=== PATIENT | male | born 1985 | race African-American/Black ===

== ENCOUNTER 2018-12-31 04:27 | Emergency (ER) | payer OTHER ==
[2018-12-31 04:41] VITALS: RESP 18
[2018-12-31 04:57] LABS: Basophils % (A) 0 %; Eosinophils # (A) 0.2 k/uL (0-0.7); Eosinophils % (A) 2 %; HCT 44.1 % (39.0-53.0); Lymphocytes # (A) 1.2 k/uL (1.0-4.8); Lymphocytes % (A) 11 %; MCH 29.3 pg (25.0-35.0); MCV 86.3 fL (80.0-100.0); Monocytes # (A) 0.2 k/uL (0-1.0); Monocytes % (A) 2 %; Neutrophils # (A) 8.6 k/uL (1.3-7.7); Neutrophils % (A) 85 %; Platelet Count 360 k/uL (150-450); RBC 5.11 m/uL (4.30-5.90); RDW 12.9 % (11.5-15.5); WBC 10.1 k/uL (3.8-10.6)
[2018-12-31] MEDS ORDERED: SODIUM CHLORIDE 0.9% 1,000 ML IV ONE ×2 (05:05→06:29)
[2018-12-31 05:09] LABS: ALT 30 U/L (21-72); AST 32 U/L (17-59); African American GFR (CKD) >90 (>60 ml/min/1.73 sqM); Albumin 4.8 g/dL (3.5-5.0); Alkaline Phosphatase 77 U/L (38-126); Amylase 55 U/L (30-110); Anion Gap 12 mmol/L; Blood Urea Nitrogen 12 mg/dL (9-20); Calcium 10.1 mg/dL (8.4-10.2); Carbon Dioxide 22 mmol/L (22-30); Chloride 107 mmol/L (98-107); Glucose 145 mg/dL (74-99); Potassium 3.6 mmol/L (3.5-5.1); Sodium 141 mmol/L (137-145); Total Bilirubin 1.1 mg/dL (0.2-1.3); Total Protein 8.5 g/dL (6.3-8.2)
[2018-12-31] MEDS ORDERED: PROMETHAZINE INJ 25 MG in SODIUM CHLORIDE 0.9% 50 ML IVPB ONE (05:15)
[2018-12-31] MEDS ORDERED: METOCLOPRAMIDE 5 MG/ML 2 ML VIAL IVP STA (05:22)
[2018-12-31 05:31] LABS: Amorphous Sediment,Urine Rare /hpf; Appearance,Urine Cloudy (Clear); Bilirubin,Urine Negative (Negative); Blood,Urine Negative (Negative); Color,Urine Yellow; Glucose,Urine (UA) Negative (Negative); Ketones,Urine 1+ (Negative); Leukocyte Esterase,Urine Negative (Negative); Mucus,Urine Many /hpf; Nitrite,Urine Negative (Negative); PH, Urine 6.5 (5.0-8.0); Protein,Urine 1+ (Negative); RBC,Urine 1 /hpf (0-5); Specific Gravity,Urine 1.031 (1.001-1.035); WBC,Urine 1 /hpf (0-5)
--- NOTE | 2018-12-31 05:39 | CT ---
EXAM: CT Abdomen and Pelvis Without Intravenous Contrast CLINICAL HISTORY: Its. reason CT Reason: periumbilical pain TECHNIQUE: Axial computed tomography images of the abdomen and pelvis without intravenous contrast. CTDI is 11.8 mGy and DLP is 695.9 mGy-cm. This CT exam was performed using one or more of the following dose reduction techniques: automated exposure control, adjustment of the mA and/or kV according to patient size, and/or use of iterative reconstruction technique. COMPARISON: No prior FINDINGS: Lung bases: Unremarkable. No mass. No consolidation. Mediastinum: Small hiatal hernia. ABDOMEN: Liver: Mild diffuse low density in the liver. Mild hepatomegaly. Gallbladder and bile ducts: Unremarkable. No calcified stones. No ductal dilation. Pancreas: Unremarkable. No ductal dilation. Spleen: Unremarkable. No splenomegaly. Adrenals: Unremarkable. No mass. Kidneys and ureters: No renal or ureteral calcification. No hydronephrosis. Stomach and bowel: No bowel obstruction. Mild apparent thickening of the transverse and descending colon likely due to under distention. PELVIS: Appendix: Normal appendix. Bladder: Decompressed bladder. No stones. Reproductive: Unremarkable as visualized. ABDOMEN and PELVIS: Intraperitoneal space: Unremarkable. No free air. No significant fluid collection. Bones/joints: No acute fracture. No dislocation. Soft tissues: Unremarkable. Vasculature: Unremarkable. No abdominal aortic aneurysm. Lymph nodes: Small mesenteric lymph nodes, nonspecific. IMPRESSION: 1. No evidence for appendicitis. 2. Nonspecific bowel gas pattern. Small hiatal hernia. 3. Fatty liver. Mild hepatomegaly. 4. No renal or ureteral calculus
--- NOTE | 2018-12-31 07:06 | ED ---
Nausea/Vomiting/Diarrhea HPI <Sean Victoria - Last Filed: 12/31/18 08:05> - General Source: patient Mode of arrival: wheelchair Limitations: no limitations - History of Present Illness MD complaint: nausea, vomiting -: week(s) Description of Vomiting: food contents Associated Abdominal Pain: Yes Location: diffuse Severity: mild Quality: cramping Consistency: intermittent Improves with: none Worsens with: none <Chase Raines - Last Filed: 01/12/19 08:52> - General Chief complaint: Nausea/Vomiting/Diarrhea Stated complaint: Abd Pain Time Seen by Provider: 12/31/18 04:41 - History of Present Illness Initial comments: This patient is 33-year-old man who presents to be evaluated for intermittent abdominal symptoms have been going on for number weeks. He states that he has intermittent abdominal cramping and vomiting. The abdominal cramping is mild, diffuse, he has not noted worsening or relieving factors. With the vomiting, he has not seen coffee-ground material or blood. No blood or dark tarry stools. No change in urination. (Chase Raines) - Related Data Previous Rx's Medication Instructions Recorded Famotidine [Pepcid] 20 mg PO BID #14 tablet 12/31/18 Ondansetron Odt [Zofran ODT] 4 mg PO Q8HR PRN #10 tab 12/31/18 Allergies Allergy/AdvReac Type Severity Reaction Status Date / Time No Known Allergies Allergy Verified 12/31/18 04:41 Review of Systems ROS Other: All systems not noted in ROS Statement are negative. <Sean Victoria - Last Filed: 12/31/18 08:05> ROS Other: All systems not noted in ROS Statement are negative. Constitutional: Denies: fever, chills Respiratory: Denies: cough, dyspnea Cardiovascular: Denies: chest pain, palpitations, edema Gastrointestinal: Reports: as per HPI, abdominal pain, nausea, vomiting. Denies: diarrhea, constipation, hematemesis, melena, hematochezia Genitourinary: Denies: dysuria, hematuria, testicular pain Musculoskeletal: Denies: back pain Skin: Denies: rash <Chase Raines - Last Filed: 01/12/19 08:52> ROS Statement: Those systems with pertinent positive or pertinent negative responses have been documented in the HPI. Past Medical History Past Medical History: No Reported History History of Any Multi-Drug Resistant Organisms: None Reported Past Surgical History: No Surgical Hx Reported Past Psychological History: No Psychological Hx Reported Smoking Status: Never smoker Past Alcohol Use History: None Reported Past Drug Use History: Marijuana <Chase Raines - Last Filed: 01/12/19 08:52> General Exam Limitations: no limitations General appearance: alert, in no apparent distress Head exam: Present: atraumatic, normocephalic Eye exam: Present: normal appearance. Absent: scleral icterus, conjunctival injection Respiratory exam: Present: normal lung sounds bilaterally. Absent: respiratory distress, wheezes, rales, rhonchi, stridor Cardiovascular Exam: Present: regular rate, normal rhythm, normal heart sounds. Absent: systolic murmur, diastolic murmur, rubs, gallop GI/Abdominal exam: Present: soft. Absent: distended, tenderness, guarding, rebound, rigid, mass Extremities exam: Present: normal inspection, normal capillary refill. Absent: pedal edema, calf tenderness Back exam: Present: normal inspection. Absent: CVA tenderness (R), CVA tenderness (L) Neurological exam: Present: alert Skin exam: Present: warm, dry, intact, normal color. Absent: rash <Chase Raines - Last Filed: 01/12/19 08:52> Course Vital Signs 12/31/18 12/31/18 12/31/18 04:39 06:35 08:28 Temperature 97.3 F L 97.9 F Pulse Rate 50 L 51 L 70 Respiratory 18 18 18 Rate Blood Pressure 167/115 96/60 131/78 O2 Sat by Pulse 100 99 98 Oximetry Medical Decision Making - Lab Data Result diagrams: 12/31/18 04:48 12/31/18 04:48 <Sean Victoria - Last Filed: 12/31/18 08:05> - Lab Data Result diagrams: 12/31/18 04:48 12/31/18 04:48 <Chase Raines - Last Filed: 01/12/19 08:52> - Lab Data Lab Results 12/31/18 12/31/18 12/31/18 Range/Units 04:48 04:48 05:21 WBC 10.1 (3.8-10.6) k/uL RBC 5.11 (4.30-5.90) m/uL Hgb 15.0 (13.0-17.5) gm/dL Hct 44.1 (39.0-53.0) % MCV 86.3 (80.0-100.0) fL MCH 29.3 (25.0-35.0) pg MCHC 34.0 (31.0-37.0) g/dL RDW 12.9 (11.5-15.5) % Plt Count 360 (150-450) k/uL Neutrophils % 85 % Lymphocytes % 11 % Monocytes % 2 % Eosinophils % 2 % Basophils % 0 % Neutrophils # 8.6 H (1.3-7.7) k/uL Lymphocytes # 1.2 (1.0-4.8) k/uL Monocytes # 0.2 (0-1.0) k/uL Eosinophils # 0.2 (0-0.7) k/uL Basophils # 0.0 (0-0.2) k/uL Sodium 141 (137-145) mmol/L Potassium 3.6 (3.5-5.1) mmol/L Chloride 107 (98-107) mmol/L Carbon Dioxide 22 (22-30) mmol/L Anion Gap 12 mmol/L BUN 12 (9-20) mg/dL Creatinine 1.08 (0.66-1.25) mg/dL Est GFR (CKD-EPI)AfAm >90 (>60 ml/min/1.73 sqM) Est GFR (CKD-EPI)NonAf >90 (>60 ml/min/1.73 sqM) Glucose 145 H (74-99) mg/dL Calcium 10.1 (8.4-10.2) mg/dL Total Bilirubin 1.1 (0.2-1.3) mg/dL AST 32 (17-59) U/L ALT 30 (21-72) U/L Alkaline Phosphatase 77 (38-126) U/L Total Protein 8.5 H (6.3-8.2) g/dL Albumin 4.8 (3.5-5.0) g/dL Amylase 55 (30-110) U/L Lipase 161 (23-300) U/L Urine Color Yellow Urine Appearance Cloudy (Clear) Urine pH 6.5 (5.0-8.0) Ur Specific [place] 1.031 (1.001-1.035) Urine Protein 1+ H (Negative) Urine Glucose (UA) Negative (Negative) Urine Ketones 1+ H (Negative) Urine Blood Negative (Negative) Urine Nitrite Negative (Negative) Urine Bilirubin Negative (Negative) Urine Urobilinogen 8.0 (<2.0) mg/dL Ur Leukocyte Esterase Negative (Negative) Urine RBC 1 (0-5) /hpf Urine WBC 1 (0-5) /hpf Amorphous Sediment Rare H (None) /hpf Urine Mucus Many H (None) /hpf Disposition Is patient prescribed a controlled substance at d/c from ED?: No Time of Disposition: 08:05 <Sean Victoria - Last Filed: 12/31/18 08:05> Is patient prescribed a controlled substance at d/c from ED?: No <Chase Raines - Last Filed: 01/12/19 08:52> Clinical Impression: Gastritis Disposition: HOME SELF-CARE Condition: Good Instructions (If sedation given, give patient instructions): Acute Nausea and Vomiting (ED) Prescriptions: Famotidine [Pepcid] 20 mg PO BID #14 tablet Ondansetron Odt [Zofran ODT] 4 mg PO Q8HR PRN #10 tab PRN Reason: Nausea Referrals: None,Stated [Primary Care Provider] - 1-2 days
[2018-12-31] MEDS ORDERED: ONDANSETRON 4 MG/2 ML VIAL IVP STA (07:10)
[2018-12-31 08:29] VITALS: BP 131/78; PULSE 70; TEMP 97.9
== END 2018-12-31 08:28 | disposition home or self-care (01) ==
LOC: EC 04:27
DX: K29.70 Gastritis, unspecified, without bleeding (principal)
CPT/HCPCS: 36415; 80053; 82150; 83690; 85025; 81001; 74176; 99284; 96365; 96375 ×2; 96361 ×2; J2550; J2765; J2405